=== PATIENT | female | born 1980 | race Caucasian/White ===

== ENCOUNTER 2016-12-24 12:14 | Emergency (ER) | payer OTHER | END 2016-12-24 13:05 | disposition home or self-care (01) | LOC: ER1 12:14 | DX: L73.2 Hidradenitis suppurativa (principal); Z90.49 Acquired absence of other specified parts of digestive tract | CPT/HCPCS: 99283 ==

== ENCOUNTER → 2021-07-11 | Outpatient (CLI) | payer BC, OTHER ==
[~2021-07-11] MED LIST: KEFLEX CAP 500500 MG PO; PREDNISONE10 MG PO
== END ==
LOC: EXRD 15:00
DX: M79.604 Pain in right leg (principal)
CPT/HCPCS: 93971